=== PATIENT | female | born 1985 | race Caucasian/White ===

== ENCOUNTER 2016-09-11 19:09 | Emergency (ER) | payer BC ==
--- NOTE | 2016-09-11 20:22 | DIAGNOSTIC IMAGING REPORT ---
PROCEDURE: CT HEAD WITHOUT CONTRAST INDICATION: Occipital headache x 5 days, initial encounter TECHNIQUE: Noncontrast axial images with sagittal and coronal reformations. COMPARISON: None. FINDINGS: Sulci, ventricular system, and brain parenchyma are normal. No evidence of acute intracranial process. Visualized mastoids and sinuses are clear. IMPRESSION: 1. Negative non-enhanced head CT. 2. Findings discussed with Juan Ramon Scott at 08:21 p.m., [facility] Time
--- NOTE | 2016-09-11 21:07 | ED ORDER SUMMARY ---
..... Patient: LEXY LANG OrderSheet [facility] VisitID: [id number] [address] [place] [address] 30y, F Registration Date/Time: 09/11/2016 ORDER SHEET Weight: 89.8 kg (stated) Allergies: Sulfa Antibiotics, Penicillins GENERAL ORDERS: CBC w Diff Urgent (19:40 09/11/2016 EKoroleva P.A.-C) (Ack 19:52 LMuller) (21:32 LMuller) BMP Urgent (19:40 09/11/2016 EKoroleva P.A.-C) (Ack 19:52 LMuller) (21:32 LMuller) CT Head wo Cont Urgent (20:09/11/2016 EKoroleva P.A.-C) (Ack 20:10 LMuller) (20:23 MCampbell) MEDICATION ORDERS: Phenergan IV 12.5 mg (HIGH ALERT MEDICATION, NOW) (:40 09/11/2016 EKoroleva P.A.-C) (Ack 19:46 HSoule) (20:40 HSoule) Hydrocodone-APAP PO 5/325 mg (NOW, HIGH ALERT MEDICATION) (:40 09/11/2016 EKoroleva P.A.-C) (Ack 21:41 HSoule) (21:45 HSoule) IV FLUIDS: IV NS : initial bolus 1000 mL (1000 mL/hr), then 1000 mL/hr for X1 (NOW); Ezequiel (19:40 09/11/2016 EKoroleva P.A.-C) (Ack 19:46 HSoule) (20:37 HSoule) Toradol IV 30 mg (NOW) (:40 09/11/2016 EKoroleva P.A.-C) (Ack 19:46 HSoule) (20:38 HSoule) Benadryl IV 25 mg (NOW) (:40 09/11/2016 EKoroleva P.A.-C) (Ack 19:46 HSoule) (20:38 HSoule) ORDER SHEET NOTES: [Electronically signed by Sharyn ScottACheryl-Ying (21:14 09/11/2016)] [Electronically signed by Adebayo Hernandez R.N. (22:01 09/11/2016)] [Electronically locked/signed by Adebayo Hernandez R.N. (22:01 09/11/2016)]
--- NOTE | 2016-09-11 21:07 | ED CLINICAL REPORT ---
Clinical Report - Physicians/Mid Levels Formerly [facility] [address] [address] 09/11/2016 19:11 [id number] Time Seen: 19:47 Sep 11 2016. Arrived- By private vehicle. Historian- patient. 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 No emesis. AT times has vision changes, wears corrective lenses, however does not have any now. Reports pain is constant, posterior nature, similar to area where she has had pain in the past, with spells of throbbing pain. Reports she has attempted to take Tylenol and Motrin with no relief. No trauma. No emesis. Some right-sided neck pain. No sick contacts.). REVIEW OF SYSTEMS No fever, muscle aches, sinus pressure, ear pain or abdominal pain. No diarrhea, skin rash or back pain. All systems otherwise negative, except as recorded above. 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 Additional Surgeries: Cyst removal from hand . Hysterectomy. Knee Surgery. Medications: INHALER . Calcium + D Oral. Aspirin Oral. Allergies: Penicillins. Sulfa Antibiotics. SOCIAL HISTORY Never smoker. Alcohol use. No drug use. ADDITIONAL NOTES The nursing notes have been reviewed. PHYSICAL EXAM Vital Signs: 09/11/2016 19:19 BP: 133/95. HR: 70. RR: 20. O2 saturation: 100%. Temp: 97.9 F. Pain level now: 5/10. Appearance: Alert. Eyes: Pupils equal, round and reactive to light. Eyes normal inspection. ENT: No nasal discharge. Neck: Normal inspection. CVS: Normal heart rate and rhythm. Heart sounds normal. Skin: Normal skin color. Neuro: Oriented X 3. Alert. Mood/affect normal. Cranial nerves normal (as tested). No cerebellar findings. LABS, X-RAYS, AND EKG CT Head: (IMPRESSION: 1. Negative non-enhanced head CT. 2. Findings discussed with Juan Ramon Scott at 08:21 p.m., [place] [facility] Time Electronically Final signed by:Matheus Bella MD 09/11/2016 8:22:30 PM). Laboratory Tests: CBC w Diff: (DONAL: 09/11/2016 20:05) ( MsgRcvd 09/11/2016 20:35) Final results Test Result Flag Units (Reference) WHITE BLOOD COUNT 9.4 K/uL (4.5-11.5) RED BLOOD COUNT 4.48 M/uL (4.00-5.20) HEMOGLOBIN 13.7 gm/dL (12.0-16.0) HEMATOCRIT 40.1 % (36.0-46.0) MEAN CELL VOLUME 89 fL (80-100) MEAN CORPUSCULAR HGB 31 pg (26-34) MEAN CORPUSCULAR HGB CONC 34 g/dL (31-37) RED CELL DISTRIBUTION WIDTH 12.2 % (11.6-14.8) PLATELET COUNT 278 K/uL (150-400) NEUTROPHIL % 54.4 % (50-75) LYMPH % 36.5 % (25-40) MONO % 4.8 % (3-14) EOSINOPHIL % 3.2 % (0-4) BASOPHIL % 1.1 % (0-2) BMP: (DONAL: 09/11/2016 20:05) ( MsgRcvd 09/11/2016 20:30) Final results Test Result Flag Units (Reference) GLUCOSE 103 mg/dL (70-110) BUN 15 mg/dL (7-18) CREATININE 0.7 mg/dL (0.6-1.3) Estimated GFR >60 mL/min Estimated GFR- >60 mL/min Note: Persistent reduction over 3 months in eGFR<60 mL/min/1.73 m2 defines CKD. Patients with eGFR values>=60 mL/min/1.73 m2 may also have CKD if evidence ofpersistent proteinuria. Additional information may be foundat www.kidney.org. SODIUM 145 mmol/L (136-145) POTASSIUM 4.0 mmol/L (3.5-5.1) CHLORIDE 108 H mmol/L (98-107) CARBON DIOXIDE 27 mmol/L (21-32) CALCIUM 9.0 mg/dL (8.5-10.1) . PROGRESS AND PROCEDURES Course of Care: Patient in the ER with headache, which is improving, no meningeal signs, headache and cough for 3 days, history of recurring headaches over the last 6 months, episodic in nature, always in the same side, most consistent with migraine-like headaches. Negative CT head, other causes such as sever for hemorrhage, meningitis in light of the largely negative exam with no meningeal signs, with afebrile nature, with no leukocytosis is low on differential. Patient understands plan. Off work tomorrow, and otherwise to follow up with primary care provider. Patient is stable. Symptoms better. Patient/family counseled. Differential Diagnosis: I considered migraine, cluster headache, ischemic stroke, subarachnoid hemorrhage, intracranial bleed, vascular malformation, vascular dissection, malignant hypertension, cerebral venous thrombosis, bacterial meningitis, viral meningitis, encephalitis, brain abscess, sinusitis, dental etiology, influenza, carbon monoxide exposure, trigeminal neuralgia, paratrigeminal neuralgia or Raeder's syndrome, muscle tension and acute angle-closure glaucoma as a possible cause of headache in this patient. This is a partial list of diagnoses considered. Disposition: Discharged. CLINICAL IMPRESSION Episodic, poorly controlled headache. INSTRUCTIONS Do not work tomorrow. Warnings: Further evaluation is necessary. Prescription Medications: Zofran (orally disintegrating tablets) 4 mg: take 1 orally every 6 hours for 3 days as needed for nausea. Dispense ten (10). No refill. Substitution is permissible. Fioricet with Codeine: Take 1-2 orally every 4 hours as needed for headache. Dispense twenty (20). No refills. Substitution is permissible. Follow-up: Follow up with your doctor Thursday in three days. (Electronically signed by Sharyn Scott P.A.-C 09/11/2016 21:14)
--- NOTE | 2016-09-11 21:07 | ED CLINICAL REPORT ---
Clinical Report - Physicians/Mid Levels [facility] [address] [place] [address] 09/11/2016 19:11 Patient: LEXY LANG [facility] [id number] Time Seen: 19:47 Sep 11 2016. Arrived- By private vehicle. Historian- patient. 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 No emesis. AT times has vision changes, wears corrective lenses, however does not have any now. Reports pain is constant, posterior nature, similar to area where she has had pain in the past, with spells of throbbing pain. Reports she has attempted to take Tylenol and Motrin with no relief. No trauma. No emesis. Some right-sided neck pain. No sick contacts.). REVIEW OF SYSTEMS No fever, muscle aches, sinus pressure, ear pain or abdominal pain. No diarrhea, skin rash or back pain. All systems otherwise negative, except as recorded above. 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 Additional Surgeries: Cyst removal from hand . Hysterectomy. Knee Surgery. Medications: INHALER . Calcium + D Oral. Aspirin Oral. Allergies: Penicillins. Sulfa Antibiotics. SOCIAL HISTORY Never smoker. Alcohol use. No drug use. ADDITIONAL NOTES The nursing notes have been reviewed. PHYSICAL EXAM Vital Signs: 09/11/2016 19:19 BP: 133/95. HR: 70. RR: 20. O2 saturation: 100%. Temp: 97.9 F. Pain level now: 5/10. Appearance: Alert. Eyes: Pupils equal, round and reactive to light. Eyes normal inspection. ENT: No nasal discharge. Neck: Normal inspection. CVS: Normal heart rate and rhythm. Heart sounds normal. Skin: Normal skin color. Neuro: Oriented X 3. Alert. Mood/affect normal. Cranial nerves normal (as tested). No cerebellar findings. LABS, X-RAYS, AND EKG CT Head: (IMPRESSION: 1. Negative non-enhanced head CT. 2. Findings discussed with Juan Ramon Scott at 08:21 p.m., [place] Standard Time Electronically Final signed by:Matheus Bella MD 09/11/2016 8:22:30 PM). Laboratory Tests: CBC w Diff: (DONAL: 09/11/2016 20:05) ( MsgRcvd 09/11/2016 20:35) Final results Test Result Flag Units (Reference) WHITE BLOOD COUNT 9.4 K/uL (4.5-11.5) RED BLOOD COUNT 4.48 M/uL (4.00-5.20) HEMOGLOBIN 13.7 gm/dL (12.0-16.0) HEMATOCRIT 40.1 % (36.0-46.0) MEAN CELL VOLUME 89 fL (80-100) MEAN CORPUSCULAR HGB 31 pg (26-34) MEAN CORPUSCULAR HGB CONC 34 g/dL (31-37) RED CELL DISTRIBUTION WIDTH 12.2 % (11.6-14.8) PLATELET COUNT 278 K/uL (150-400) NEUTROPHIL % 54.4 % (50-75) LYMPH % 36.5 % (25-40) MONO % 4.8 % (3-14) EOSINOPHIL % 3.2 % (0-4) BASOPHIL % 1.1 % (0-2) BMP: (DONAL: 09/11/2016 20:05) ( MsgRcvd 09/11/2016 20:30) Final results Test Result Flag Units (Reference) GLUCOSE 103 mg/dL (70-110) BUN 15 mg/dL (7-18) CREATININE 0.7 mg/dL (0.6-1.3) Estimated GFR >60 mL/min Estimated GFR- >60 mL/min Note: Persistent reduction over 3 months in eGFR<60 mL/min/1.73 m2 defines CKD. Patients with eGFR values>=60 mL/min/1.73 m2 may also have CKD if evidence ofpersistent proteinuria. Additional information may be foundat www.kidney.org. SODIUM 145 mmol/L (136-145) POTASSIUM 4.0 mmol/L (3.5-5.1) CHLORIDE 108 H mmol/L (98-107) CARBON DIOXIDE 27 mmol/L (21-32) CALCIUM 9.0 mg/dL (8.5-10.1) . PROGRESS AND PROCEDURES Course of Care: Patient in the ER with headache, which is improving, no meningeal signs, headache and cough for 3 days, history of recurring headaches over the last 6 months, episodic in nature, always in the same side, most consistent with migraine-like headaches. Negative CT head, other causes such as sever for hemorrhage, meningitis in light of the largely negative exam with no meningeal signs, with afebrile nature, with no leukocytosis is low on differential. Patient understands plan. Off work tomorrow, and otherwise to follow up with primary care provider. Patient is stable. Symptoms better. Patient/family counseled. Differential Diagnosis: I considered migraine, cluster headache, ischemic stroke, subarachnoid hemorrhage, intracranial bleed, vascular malformation, vascular dissection, malignant hypertension, cerebral venous thrombosis, bacterial meningitis, viral meningitis, encephalitis, brain abscess, sinusitis, dental etiology, influenza, carbon monoxide exposure, trigeminal neuralgia, paratrigeminal neuralgia or Raeder's syndrome, muscle tension and acute angle-closure glaucoma as a possible cause of headache in this patient. This is a partial list of diagnoses considered. Disposition: Discharged. CLINICAL IMPRESSION Episodic, poorly controlled headache. INSTRUCTIONS Do not work tomorrow. Warnings: Further evaluation is necessary. Prescription Medications: Zofran (orally disintegrating tablets) 4 mg: take 1 orally every 6 hours for 3 days as needed for nausea. Dispense ten (10). No refill. Substitution is permissible. Fioricet with Codeine: Take 1-2 orally every 4 hours as needed for headache. Dispense twenty (20). No refills. Substitution is permissible. Follow-up: Follow up with your doctor Thursday in three days. (Electronically signed by Sharyn Scott P.A.-C 09/11/2016 21:14)
--- NOTE | 2016-09-11 21:07 | ED NURSING NOTES ---
Clinical Report - Nurses [place] [address] [place] [address] 09/11/2016 19:11 Patient: LEXY LANG TRIAGE Triage time 19:19 Sep 11 2016. Acuity: LEVEL 3. Chief Complaint: (Shooting head pains). ( FAST exam neg). SEPSIS SCREEN: Sepsis Screen: negative. Negative (no infection suspected/documented). LE COMA SCORE: [place] Coma Scale: 15- eyes open spontaneously (4); best verbal response- oriented x 4 (5); best motor response- obeys commands (6). --19:24 Alysia Tilley 19:19 09/11/16. BP: 133/95. HR: 70. RR: 20. O2 saturation: 100% on room air. Temp: 97.9 F (oral). Pain level now: 5/10. --19:24 Alysia Tilley. Weight: 89.8 kg stated. Height/Length: 66 inches Per Patient. BMI: 32. --19:21 Alysia Tilley. Medications Aspirin Oral. --19:22 Alysia Tilley Calcium + D Oral. --19:22 Alysia Tilley INHALER . --19:22 Alysia Tilley. Allergies Sulfa Antibiotics. --19:23 Alysia Tilley Penicillins. --19:23 Alysia Tilley. Medication/allergy information source: the patient. --19:24 Alysia Tilley. History Arrived by private vehicle. Historian: patient. Accompanied by family. Primary physician (ervin). Onset. (3 days ago). ( Patient reports "shooting, sharp bursts of pain" on her right frontal area of her head. She states this pain is accompanied by a dull headache. She reports that she has been having trouble articulating her speech and some issues with vision such as "black spots" in her visual field.). PAST MEDICAL HX: Immunizations: up-to-date. The patient has had a hysterectomy. Has had a hysterectomy. SOCIAL HX: Never smoker. Occasional alcohol use. No drug use. No infectious disease exposure. ABUSE ASSESSMENT: No report of abuse. FALL RISK ASSESSMENT: Fall risk assessment completed. No fall risk identified. NUTRITIONAL RISK ASSESSMENT: The nutritional risk assessment revealed no deficiencies. FUNCTIONAL ASSESSMENT: Functional assessment: no impairments noted. LEARNING NEEDS ASSESSMENT: The learning needs assessment revealed no barriers. SKIN INTEGRITY ASSESSMENT: Skin integrity risk assessment completed. No skin integrity risk identified. --19:24 Alysia Tilley. PROBLEMS: Peter Syndrome . --19:33 Alysia Tilley. ADDITIONAL SURGERIES: Cyst removal from hand . Hysterectomy. Knee Surgery. --19:23 Alysia Tilley. Interventions ID band on patient. To treatment room. --19:24 Alysia Tilley. PHYSICAL ASSESSMENT :09/11/16. Ambulatory to room. Patient gowned. GENERAL / NEURO / PSYCH: Alert. Oriented X 4. Appears in no acute distress. HEENT: No facial asymmetry noted. Mucous membranes are pink. RESPIRATORY: Respirations not labored. CVS: Normal sinus rhythm noted. SKIN: Skin is warm and dry. --19:24 Alysia Tilley. NURSING PROGRESS NOTES Pulse oximeter and NIBP monitor placed on patient; monitor alarms on. Patient gowned. Reassurance given to the patient. Two patient identifiers checked. Call light placed in reach. Side rails up x 1. Bed placed in lowest position. Brakes of bed on. Patient ready for evaluation- chart flagged and ED physician notified. 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 --19:33 Alysia Tilley 20:09 09/11/2016 One (1) unsuccessful IV access attempt including the left antecubital space. Applied bandaid (Blood drawn and sent to lab. Start attempted by student Ava Jose). --20:09 Alysia Tilley Patient transported to CT by stretcher with tech. (20:10 Sep 11 2016). --20:10 Alysia Tilley Patient returned from CT by stretcher with tech. (20:14 Sep 11 2016). --20:14 Alysia Tilley 20:31 09/11/2016 Site #1 started via IV in the right hand with an 22g angiocath, with aseptic technique and good blood return; one attempt. Saline lock flushed with 10 mL saline. --20:36 Alysia Tilley 20:33 09/11/2016 Benadryl (DiphenhydrAMINE HCl) IVP 25 mg given over 1 minute(s) via site #1. Allergies verified, confirmed 5 rights and sedative warning given to the patient. IV patency established. IV site checked: no pain, redness, or swelling. IV flushed thoroughly pre- and post-medication administration. IVP given by RN. --20:38 Alysia Tilley 20:37 09/11/2016 Started bag #1 1000 mL IV Fluids IV NS (Saline); at 1000 mL/hr over 1 hour(s) via site #1 via IV pump. Allergies verified and confirmed 5 rights. IV patency established. IV site checked: no pain, redness, or swelling. IV flushed thoroughly pre- and post-medication administration. --20:37 Alysia Tilley 20:37 09/11/2016 Toradol IVP 30 mg given over 1 minute(s) via site #1. Allergies verified and confirmed 5 rights. IV patency established. IV site checked: no pain, redness, or swelling. IV flushed thoroughly pre- and post-medication administration. IVP given by RN. --20:38 Alysia Tilley 20:40 09/11/2016 PHENERGAN (Promethazine HCl) IVP 12.5 mg given diluted in NS 10mL over 1 minute(s) via site #1. Allergies verified and confirmed 5 rights. IV patency established. IV site checked: no pain, redness, or swelling. IV flushed thoroughly pre- and post-medication administration. IVP given by RN. --20:40 Alysia Tilley 20:40 09/11/16. BP: 105/76. HR: 83. RR: 16. O2 saturation: 100% on room air. Pain level now: 11/17. --20:41 Alysia Tilley 21:31 09/11/2016 IV Fluids IV NS Discontinued: bag #1 completed. Total amount infused: 1000 mL. IV patency established. IV site checked: no pain, redness, or swelling. IV flushed thoroughly. (Patient up for discharge, provider will hold second bag of fluids.). --21:31 Alysia Tilley 21:45 09/11/2016 Hydrocodone-APAP (Hydrocodone-Acetaminophen) PO 5/325 mg Tablets 1 tab given. Allergies verified, confirmed 5 rights and sedative warning given to the patient. --21:45 Alysia Tilley. DISPOSITION / DISCHARGE 21:59 09/11/2016 Site #1 removed upon discharge. Catheter intact. Bandaid applied. --21:59 Adebayo Hernandez R.N. Departure time: 22:00. Condition at departure: improved. No learning barriers present. Discharge instructions provided and reviewed. Reviewed warnings. Reviewed medication(s). Treatments reviewed. Work note given. Patient verbalized understanding. Written instructions provided in Slovenian. 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 She was discharged home and accompanied by spouse. She left the Emergency Department ambulatory and via private vehicle. Spouse driving. --22: Adebayo Hernandez R.N. 21:59 09/11/16. BP: 105/69. HR: 63. RR: 15. O2 saturation: 99%. Pain level now 4/10. --22:01 Adebayo Hernandez R.N. Departure time: 22:01. --22:01 Adebayo Hernandez R.N. Locked/Released at 09/11/2016 22:01 by Adebayo Hernandez R.N.
--- NOTE | 2016-09-11 21:07 | ED ORDER SUMMARY ---
..... Patient: LEXY LANG OrderSheet [facility] VisitID: [id number] [address] [place] [address] 30y, F Registration Date/Time: 09/11/2016 ORDER SHEET Weight: 89.8 kg (stated) Allergies: Sulfa Antibiotics, Penicillins GENERAL ORDERS: CBC w Diff Urgent (19:40 09/11/2016 EKoroleva P.A.-C) (Ack 19:52 LMuller) (21:32 LMuller) BMP Urgent (19:40 09/11/2016 EKoroleva P.A.-C) (Ack 19:52 LMuller) (21:32 LMuller) CT Head wo Cont Urgent (20:09/11/2016 EKoroleva P.A.-C) (Ack 20:10 LMuller) (20:23 MCampbell) MEDICATION ORDERS: Phenergan IV 12.5 mg (HIGH ALERT MEDICATION, NOW) (:40 09/11/2016 EKoroleva P.A.-C) (Ack 19:46 HSoule) (20:40 HSoule) Hydrocodone-APAP PO 5/325 mg (NOW, HIGH ALERT MEDICATION) (:40 09/11/2016 EKoroleva P.A.-C) (Ack 21:41 HSoule) (21:45 HSoule) IV FLUIDS: IV NS : initial bolus 1000 mL (1000 mL/hr), then 1000 mL/hr for X1 (NOW); Ezequiel (19:40 09/11/2016 EKoroleva P.A.-C) (Ack 19:46 HSoule) (20:37 HSoule) Toradol IV 30 mg (NOW) (:40 09/11/2016 EKoroleva P.A.-C) (Ack 19:46 HSoule) (20:38 HSoule) Benadryl IV 25 mg (NOW) (:40 09/11/2016 EKoroleva P.A.-C) (Ack 19:46 HSoule) (20:38 HSoule) ORDER SHEET NOTES: [Electronically signed by Sharyn ScottACheryl-Ying (21:14 09/11/2016)] [Electronically signed by Adebayo Hernandez R.N. (22:01 09/11/2016)] [Electronically locked/signed by Adebayo Hernandez R.N. (22:01 09/11/2016)]
--- NOTE | 2016-09-11 22:02 | ED MAR SUMMARY ---
..... Medication Administration Record [facility] [address] [place] [address] Patient: LEXY LANG Visit ID: [id number] 30y, F Weight: 89.8 kg Height/Length: 66 in BMI: 32 ALLERGIES: Penicillins, Sulfa Antibiotics Given 20:33 09/11/2016 Alysia Tilley, Medication Administered: BENADRYL [IVP] (DIPHENHYDRAMINE HCL), Dose: 25 mg IVP over 1 minute(s), Site: #1 right hand. Medication Ordered: Benadryl IV 25 mg (NOW). Start 20:37 09/11/2016 Alysia Tilley,, Stop 21:31 09/11/2016 Alysia Tilley, Medication Administered: IV NS (SALINE), Dose: IV Fluids over 1 hour(s), Rate: 1000 mL/hr, Dispensed: 1000 mL bag, Site: #1 right hand. Medication Ordered: IV NS : initial bolus 1000 mL (1000 mL/hr), then 1000 mL/hr for X1 (NOW); Ezequiel. Given 20:37 09/11/2016 Alysia Tilley, Medication Administered: TORADOL [IVP], Dose: 30 mg IVP over 1 minute(s), Site: #1 right hand. Medication Ordered: Toradol IV 30 mg (NOW). Given 20:40 09/11/2016 Alysia Tilley, Medication Administered: PHENERGAN [IVP] (PROMETHAZINE HCL), Dose: 12.5 mg IVP over 1 minute(s), In: NS 10 mL, Site: #1 right hand. Medication Ordered: Phenergan IV 12.5 mg (HIGH ALERT MEDICATION, NOW). Given 21:45 09/11/2016 Alysia Tilley, Medication Administered: HYDROCODONE-APAP [PO] (HYDROCODONE-ACETAMINOPHEN), Dose: 1 tab 5/325 mg Tablets PO. Medication Ordered: Hydrocodone-APAP PO 5/325 mg (NOW, HIGH ALERT MEDICATION).
--- NOTE | 2016-09-11 22:02 | ED MED RECONCILIATION SUMMARY ---
Patient: LEXY LANG Medication Reconciliation Report [facility] VisitID: [id number] [address] [place] [address] 30y, F Registration Date/Time: 09/11/2016 Weight: 89.8 kg Height/Length: 66 in. BMI: 32.0 ALLERGIES: Penicillins, Sulfa Antibiotics The patient's Home Medications are listed below: THE FOLLOWING MEDICATIONS NEED TO BE RECONCILED: Aspirin Oral Calcium + D Oral INHALER The source(s) of the original Home Medication information: patient The following Medications were given to the patient in the Emergency Department: IV NS IV Fluids bolus 0, then 1000 mL/hr, administered: 09/11/2016 8:37:00 PM Toradol [IVP] IVP 30 mg, administered: 09/11/2016 8:37:00 PM Benadryl [IVP] IVP 25 mg, administered: 09/11/2016 8:33:00 PM PHENERGAN [IVP] IVP 12.5 mg diluted in NS 10 mL, administered: 09/11/2016 8:40:00 PM Hydrocodone-APAP [PO] PO 1 tab, administered: 09/11/2016 9:45:00 PM The following Medications were prescribed to the patient: Zofran (orally disintegrating tablets) 4 mg: take 1 orally every 6 hours for 3 days as needed for nausea. Dispense ten (10). No refill. Substitution is permissible. -- Sharyn Scott, P.A.-Ying Fioricet with Codeine: Take 1-2 orally every 4 hours as needed for headache. Dispense twenty (20). No refills. Substitution is permissible. -- Sharyn Scott, P.A.-C
--- NOTE | 2016-09-11 22:02 | ED MAR SUMMARY ---
..... Medication Administration Record [facility] [address] [place] [address] Patient: LEXY LANG Visit ID: [id number] 30y, F Weight: 89.8 kg Height/Length: 66 in BMI: 32 ALLERGIES: Penicillins, Sulfa Antibiotics Given 20:33 09/11/2016 Alysia Tilley, Medication Administered: BENADRYL [IVP] (DIPHENHYDRAMINE HCL), Dose: 25 mg IVP over 1 minute(s), Site: #1 right hand. Medication Ordered: Benadryl IV 25 mg (NOW). Start 20:37 09/11/2016 Alysia Tilley,, Stop 21:31 09/11/2016 Alysia Tilley, Medication Administered: IV NS (SALINE), Dose: IV Fluids over 1 hour(s), Rate: 1000 mL/hr, Dispensed: 1000 mL bag, Site: #1 right hand. Medication Ordered: IV NS : initial bolus 1000 mL (1000 mL/hr), then 1000 mL/hr for X1 (NOW); Ezequiel. Given 20:37 09/11/2016 Alysia Tilley, Medication Administered: TORADOL [IVP], Dose: 30 mg IVP over 1 minute(s), Site: #1 right hand. Medication Ordered: Toradol IV 30 mg (NOW). Given 20:40 09/11/2016 Alysia Tilley, Medication Administered: PHENERGAN [IVP] (PROMETHAZINE HCL), Dose: 12.5 mg IVP over 1 minute(s), In: NS 10 mL, Site: #1 right hand. Medication Ordered: Phenergan IV 12.5 mg (HIGH ALERT MEDICATION, NOW). Given 21:45 09/11/2016 Alysia Tilley, Medication Administered: HYDROCODONE-APAP [PO] (HYDROCODONE-ACETAMINOPHEN), Dose: 1 tab 5/325 mg Tablets PO. Medication Ordered: Hydrocodone-APAP PO 5/325 mg (NOW, HIGH ALERT MEDICATION).
--- NOTE | 2016-09-11 22:02 | ED DISCHARGE INSTRUCTIONS ---
Patient: LEXY LANG General Instructions [facility] VisitID: [id number] [place] [address] 30y, F Registration Date/Time: 09/11/2016 Episodic, poorly controlled headache. INSTRUCTIONS Do not work tomorrow. Warnings: Further evaluation is necessary. Prescription Medications: Zofran (orally disintegrating tablets) 4 mg: take 1 orally every 6 hours for 3 days as needed for nausea. Dispense ten (10). No refill. Substitution is permissible. Fioricet with Codeine: Take 1-2 orally every 4 hours as needed for headache. Dispense twenty (20). No refills. Substitution is permissible. Follow-up: Follow up with your doctor Thursday in three days. ADDITIONAL INFORMATION Headache [Unspecified] The cause of your headache today is not clear, but it does not appear to be the sign of any serious illness. Under stress, some people tense the muscles of their shoulder, neck and scalp without knowing it. If this condition lasts long enough, a TENSION HEADACHE can occur. A MIGRAINE HEADACHE is caused by changes in blood flow to the brain. A migraine attack may be triggered by emotional stress, hormone changes during the menstrual cycle, oral contraceptives, alcohol use, certain foods containing tyramine, eye strain, weather changes, missing meals, lack of sleep or oversleeping. Other causes of headache include a viral illness with high fever, head injury with concussion, sinus, ear or throat infection, dental pain and TMJ (jaw joint) pain. More serious but less common causes of headache include stroke, brain hemorrhage, brain tumor, meningitis and encephalitis. Home Care: If you were given pain medicine for this headache, do not drive yourself home. Arrange for a ride, instead. When you get home, try to sleep. You should feel much better when you wake up. Apply heat to the back of your neck to relieve neck muscle spasm. Migraine headaches may respond best to an ice pack on the forehead or at the base of the skull. If you are having nausea or vomiting, follow a light diet until your headache is relieved. If you have a migraine type headache, use sunglasses when in the daylight or around bright indoor lighting until symptoms improve. Bright glaring light can worsen this kind of headache. Follow Up with your doctor if the headache is not better within the next 24 hours. If you have frequent headaches you should discuss a treatment plan with your primary care doctor. By being aware of the earliest signs of headache, and starting treatment right away, you may be able to stop the pain yourself. Get Prompt Medical Attention if any of the following occur: Worsening of your head pain or no improvement within 24 hours Repeated vomiting (unable to keep liquids down) Fever of 100.4F (38C) or higher, or as directed by your healthcare provider Stiff neck Extreme drowsiness, confusion or fainting Dizziness, vertigo (dizziness with spinning sensation) Weakness of an arm or leg or one side of the face Difficulty with speech or vision Ondansetron Hydrochloride Oral tablet What is this medicine? ONDANSETRON (on SHAVON se annia) is used to treat nausea and vomiting caused by chemotherapy. It is also used to prevent or treat nausea and vomiting after surgery. How should I use this medicine? Take this medicine by mouth with a glass of water. Follow the directions on your prescription label. Take your doses at regular intervals. Do not take your medicine more often than directed. Talk to your travel writer regarding the use of this medicine in children. Special care may be needed. What side effects may I notice from receiving this medicine? Side effects that you should report to your doctor or health child care nurse as soon as possible: allergic reactions like skin rash, itching or hives, swelling of the face, lips or tongue breathing problems dizziness fast or irregular heartbeat feeling faint or lightheaded, falls fever and chills swelling of the hands or feet tightness in the chest Side effects that usually do not require medical attention (report to your doctor or health child care nurse if they continue or are bothersome): constipation or diarrhea headache What may interact with this medicine? Do not take this medicine with any of the following medications: -apomorphine -cisapride -dofetilide -dronedarone -pimozide -thioridazine -ziprasidone This medicine may also interact with the following medications: -carbamazepine -phenytoin -rifampicin -tramadol -other medicines that prolong the QT interval (cause an abnormal heart rhythm) What if I miss a dose? If you miss a dose, take it as soon as you can. If it is almost time for your next dose, take only that dose. Do not take double or extra doses. Where should I keep my medicine? Keep out of the reach of children. Store between 2 and 30 degrees C (36 and 86 degrees F). Throw away any unused medicine after the expiration date. What should I tell my health care provider before I take this medicine? They need to know if you have any of these conditions: heart disease history of irregular heartbeat liver disease low levels of magnesium or potassium in the blood an unusual or allergic reaction to ondansetron, granisetron, other medicines, foods, dyes, or preservatives or trying to get breast-feeding What should I watch for while using this medicine? Check with your doctor or health child care nurse right away if you have any sign of an allergic reaction. You have been given the following additional information: Headache, Unspecified Ondansetron Hydrochloride Oral tablet Do not work tomorrow. (Electronically signed by Sharyn Scott P.A.-C 09/11/2016 21:14)
--- NOTE | 2016-09-11 22:02 | ED MED RECONCILIATION SUMMARY ---
Patient: LEXY LANG Medication Reconciliation Report [facility] VisitID: [id number] [address] [place] [address] 30y, F Registration Date/Time: 09/11/2016 Weight: 89.8 kg Height/Length: 66 in. BMI: 32.0 ALLERGIES: Penicillins, Sulfa Antibiotics The patient's Home Medications are listed below: THE FOLLOWING MEDICATIONS NEED TO BE RECONCILED: Aspirin Oral Calcium + D Oral INHALER The source(s) of the original Home Medication information: patient The following Medications were given to the patient in the Emergency Department: IV NS IV Fluids bolus 0, then 1000 mL/hr, administered: 09/11/2016 8:37:00 PM Toradol [IVP] IVP 30 mg, administered: 09/11/2016 8:37:00 PM Benadryl [IVP] IVP 25 mg, administered: 09/11/2016 8:33:00 PM PHENERGAN [IVP] IVP 12.5 mg diluted in NS 10 mL, administered: 09/11/2016 8:40:00 PM Hydrocodone-APAP [PO] PO 1 tab, administered: 09/11/2016 9:45:00 PM The following Medications were prescribed to the patient: Zofran (orally disintegrating tablets) 4 mg: take 1 orally every 6 hours for 3 days as needed for nausea. Dispense ten (10). No refill. Substitution is permissible. -- Sharyn Scott, P.A.-Ying Fioricet with Codeine: Take 1-2 orally every 4 hours as needed for headache. Dispense twenty (20). No refills. Substitution is permissible. -- Sharyn Scott, P.A.-C
--- NOTE | 2016-09-11 22:02 | ED DISCHARGE INSTRUCTIONS ---
Patient: LEXY LANG General Instructions [facility] VisitID: [id number] [place] [address] 30y, F Registration Date/Time: 09/11/2016 Episodic, poorly controlled headache. INSTRUCTIONS Do not work tomorrow. Warnings: Further evaluation is necessary. Prescription Medications: Zofran (orally disintegrating tablets) 4 mg: take 1 orally every 6 hours for 3 days as needed for nausea. Dispense ten (10). No refill. Substitution is permissible. Fioricet with Codeine: Take 1-2 orally every 4 hours as needed for headache. Dispense twenty (20). No refills. Substitution is permissible. Follow-up: Follow up with your doctor Thursday in three days. ADDITIONAL INFORMATION Headache [Unspecified] The cause of your headache today is not clear, but it does not appear to be the sign of any serious illness. Under stress, some people tense the muscles of their shoulder, neck and scalp without knowing it. If this condition lasts long enough, a TENSION HEADACHE can occur. A MIGRAINE HEADACHE is caused by changes in blood flow to the brain. A migraine attack may be triggered by emotional stress, hormone changes during the menstrual cycle, oral contraceptives, alcohol use, certain foods containing tyramine, eye strain, weather changes, missing meals, lack of sleep or oversleeping. Other causes of headache include a viral illness with high fever, head injury with concussion, sinus, ear or throat infection, dental pain and TMJ (jaw joint) pain. More serious but less common causes of headache include stroke, brain hemorrhage, brain tumor, meningitis and encephalitis. Home Care: If you were given pain medicine for this headache, do not drive yourself home. Arrange for a ride, instead. When you get home, try to sleep. You should feel much better when you wake up. Apply heat to the back of your neck to relieve neck muscle spasm. Migraine headaches may respond best to an ice pack on the forehead or at the base of the skull. If you are having nausea or vomiting, follow a light diet until your headache is relieved. If you have a migraine type headache, use sunglasses when in the daylight or around bright indoor lighting until symptoms improve. Bright glaring light can worsen this kind of headache. Follow Up with your doctor if the headache is not better within the next 24 hours. If you have frequent headaches you should discuss a treatment plan with your primary care doctor. By being aware of the earliest signs of headache, and starting treatment right away, you may be able to stop the pain yourself. Get Prompt Medical Attention if any of the following occur: Worsening of your head pain or no improvement within 24 hours Repeated vomiting (unable to keep liquids down) Fever of 100.4F (38C) or higher, or as directed by your healthcare provider Stiff neck Extreme drowsiness, confusion or fainting Dizziness, vertigo (dizziness with spinning sensation) Weakness of an arm or leg or one side of the face Difficulty with speech or vision Ondansetron Hydrochloride Oral tablet What is this medicine? ONDANSETRON (on SHAVON se annia) is used to treat nausea and vomiting caused by chemotherapy. It is also used to prevent or treat nausea and vomiting after surgery. How should I use this medicine? Take this medicine by mouth with a glass of water. Follow the directions on your prescription label. Take your doses at regular intervals. Do not take your medicine more often than directed. Talk to your stick roller regarding the use of this medicine in children. Special care may be needed. What side effects may I notice from receiving this medicine? Side effects that you should report to your doctor or health manager care as soon as possible: allergic reactions like skin rash, itching or hives, swelling of the face, lips or tongue breathing problems dizziness fast or irregular heartbeat feeling faint or lightheaded, falls fever and chills swelling of the hands or feet tightness in the chest Side effects that usually do not require medical attention (report to your doctor or health manager care if they continue or are bothersome): constipation or diarrhea headache What may interact with this medicine? Do not take this medicine with any of the following medications: -apomorphine -cisapride -dofetilide -dronedarone -pimozide -thioridazine -ziprasidone This medicine may also interact with the following medications: -carbamazepine -phenytoin -rifampicin -tramadol -other medicines that prolong the QT interval (cause an abnormal heart rhythm) What if I miss a dose? If you miss a dose, take it as soon as you can. If it is almost time for your next dose, take only that dose. Do not take double or extra doses. Where should I keep my medicine? Keep out of the reach of children. Store between 2 and 30 degrees C (36 and 86 degrees F). Throw away any unused medicine after the expiration date. What should I tell my health care provider before I take this medicine? They need to know if you have any of these conditions: heart disease history of irregular heartbeat liver disease low levels of magnesium or potassium in the blood an unusual or allergic reaction to ondansetron, granisetron, other medicines, foods, dyes, or preservatives or trying to get breast-feeding What should I watch for while using this medicine? Check with your doctor or health manager care right away if you have any sign of an allergic reaction. You have been given the following additional information: Headache, Unspecified Ondansetron Hydrochloride Oral tablet Do not work tomorrow. (Electronically signed by Sharyn Scott P.A.-C 09/11/2016 21:14)
== END 2016-09-11 21:55 | disposition home or self-care (01) ==
LOC: ED SRH 19:09
DX: G44.89 Other headache syndrome (principal); Z88.0 Allergy status to penicillin; Z88.2 Allergy status to sulfonamides
CPT/HCPCS: 90047; 95059

== ENCOUNTER 2017-01-14 19:57 | Emergency (ER) | payer BC ==
--- NOTE | 2017-01-14 21:07 | ED ORDER SUMMARY ---
..... Patient: LEXY LANG OrderSheet [facility] VisitID: [id number] [address] [place] [address] 31y, F Registration Date/Time: 01/14/2017 ORDER SHEET Weight: 83.9 kg (stated) Allergies: Penicillins, Sulfa Antibiotics, Shellfish-derived Products, Cats GENERAL ORDERS: MEDICATION ORDERS: Prednisone PO 60 mg (NOW) (20:30 01/14/2017 Mimi Dey) (20:42 SRoberts R.N.) HydrOXYzine PO 50 mg (NOW) (20:30 01/14/2017 Mimi Dey) (20:42 Arie R.N.) Claritin PO 10 mg (NOW) (20:30 01/14/2017 Mimi Dey) (20:42 Arie R.N.) IV FLUIDS: ORDER SHEET NOTES: [Electronically signed by Concepcion Poon R.N. (21:19 01/14/2017)] [Electronically signed by Tano Malcolm Dr. (07:40 01/17/2017)] [Electronically locked/signed by Concepcion Poon R.N. (21:19 01/14/2017)]
--- NOTE | 2017-01-14 21:07 | ED ORDER SUMMARY ---
..... Patient: LEXY LANG OrderSheet [facility] VisitID: [id number] [address] [place] [address] 31y, F Registration Date/Time: 01/14/2017 ORDER SHEET Weight: 83.9 kg (stated) Allergies: Penicillins, Sulfa Antibiotics, Shellfish-derived Products, Cats GENERAL ORDERS: MEDICATION ORDERS: Prednisone PO 60 mg (NOW) (20:30 01/14/2017 Mimi Dey) (20:42 SRoberts R.N.) HydrOXYzine PO 50 mg (NOW) (20:30 01/14/2017 Mimi Dey) (20:42 Arie R.N.) Claritin PO 10 mg (NOW) (20:30 01/14/2017 Mimi Dey) (20:42 Arie R.N.) IV FLUIDS: ORDER SHEET NOTES: [Electronically signed by Concepcion Poon R.N. (21:19 01/14/2017)] [Electronically signed by Tano Malcolm Dr. (07:40 01/17/2017)] [Electronically locked/signed by Concepcion Poon R.N. (21:19 01/14/2017)]
--- NOTE | 2017-01-14 21:07 | ED NURSING NOTES ---
Clinical Report - Nurses [facility] [address] [place] [address] 01/14/2017 19:57 Patient: LEXY LANG TRIAGE Triage time 20:07. Acuity: LEVEL 2. Chief Complaint: POSSIBLE ALLERGIC REACTION and . Pt moving air well, speaking full sentences. Rt eye blood shot. Had had contacks in and removed about 30 min after exposure. Alert. No acute distress. --20:16 Concepcion Poon R.N. 20:10 01/14/17. BP: 118/82 taken on the left arm, while sitting. HR: 106. RR: 20. O2 saturation: 97%. Temp: 97.9 F. Pain level now: 01/17. --20:16 Concepcion Poon R.N. 20:10 01/14/17. BP: 118/82 taken on the left arm, while sitting. HR: 106. RR: 20. O2 saturation: 97%. Temp: 97.9 F. Pain level now: 01/17. --20:16 Concepcion Poon R.N. Weight: 83.9 kg stated. Height/Length: 67 inches Per Patient. BMI: 29. --20:15 Concepcion Poon R.N. Medications Aspirin Oral. Calcium + D Oral. INHALER (used lots of times today ). --20:09 Concepcion Poon R.N. Medication/allergy information source: the patient. --20:16 Concepcion Poon R.N. Allergies Penicillins. Sulfa Antibiotics. --20:09 Concepcion Poon R.N. Shellfish-derived Products. --20:17 Concepcion Poon R.N. Cats. --20:17 Concepcion Poon R.N. History Arrived by private vehicle. Historian: patient. Accompanied by friend. This started just prior to arrival. She has had swelling. No skin rash or itching. 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 (30 min ago). PAST MEDICAL HX: Immunizations: up-to-date. The patient has had a hysterectomy. SOCIAL HX: Never smoker. No alcohol use or drug use. No infectious disease exposure. ABUSE ASSESSMENT: No report of abuse. FALL RISK ASSESSMENT: Fall risk assessment completed. No fall risk identified. NUTRITIONAL RISK ASSESSMENT: The nutritional risk assessment revealed no deficiencies. FUNCTIONAL ASSESSMENT: Functional assessment: no impairments noted. LEARNING NEEDS ASSESSMENT: The learning needs assessment revealed no barriers. SKIN INTEGRITY ASSESSMENT: Skin integrity risk assessment completed. No skin integrity risk identified. --20:16 Concepcion Poon R.N. PROBLEMS: Headache. Peter Syndrome . Contusion. Low back pain. --20:15 Concepcion Poon R.N. ADDITIONAL SURGERIES: Cyst removal from hand . Hysterectomy. Knee Surgery. --20:15 Concepcion Poon R.N. Interventions ID band on patient. To room. --20:16 Concepcion Poon R.N. PHYSICAL ASSESSMENT Ambulatory to room. Patient gowned. GENERAL / NEURO / PSYCH: Alert. Appears in pain and anxious. Oriented X 4. HEENT: ( eye bloodshot, rt is worse.). Mucous membranes are pink. RESPIRATORY: Respirations not labored. ( speaks full sentences, moving good air). CVS: Capillary refill less than 2 seconds. GI / : Abdomen nontender. SKIN: Skin is intact, warm and dry. No skin rash. --20:18 Concepcion Poon R.N. NURSING PROGRESS NOTES Patient gowned. Head of bed elevated. Two patient identifiers checked. Call light placed in reach. Side rails up x 1. Bed placed in lowest position. Brakes of bed on. Patient ready for evaluation. --20:19 Concepcion Poon R.N. 20:32 01/14/2017 Prednisone PO 60 mg given. Allergies verified and confirmed 5 rights. --20:42 Concepcion Poon R.N. 20:32 01/14/2017 Hydroxyzine (HydrOXYzine HCl) PO 50 mg given. Allergies verified, confirmed 5 rights and sedative warning given to the patient. --20:42 Concepcion Poon R.N. 20:32 01/14/2017 Claritin (Loratadine) PO 10 mg given. Allergies verified and confirmed 5 rights. --20:42 Concepcion Poon R.N. DISPOSITION / DISCHARGE 21:18 01/14/17. Condition at departure: improved. No learning barriers present. Reviewed medication(s) side effects, precautions, dosing and course information. Prescription(s) given to the patient. Patient verbalized understanding. Written instructions provided in Romansh. The patient was discharged home and accompanied by data communications analyst. She left the Emergency Department ambulatory and via private vehicle. Veterinary Technician Instructor driving. Medication list reviewed and validated. --21:18 Concepcion Poon R.N. 21:18 01/14/17. BP: 112/70. HR: 76. RR: 16. O2 saturation: 100%. Temp: deferred. Pain level now: 09/19. 20:10 01/14/17. BP: 118/82 taken on the left arm, while sitting. HR: 106. RR: 20. O2 saturation: 97%. Temp: 97.9 F. Pain level now: 01/17. --21:18 Concepcion Poon R.N. Locked/Released at 01/14/2017 21:19 by Concepcion Poon R.N.
--- NOTE | 2017-01-14 21:07 | ED NURSING NOTES ---
Clinical Report - Nurses [facility] [address] [place] [address] 01/14/2017 19:57 Patient: LEXY LANG TRIAGE Triage time 20:07. Acuity: LEVEL 2. Chief Complaint: POSSIBLE ALLERGIC REACTION and . Pt moving air well, speaking full sentences. Rt eye blood shot. Had had contacks in and removed about 30 min after exposure. Alert. No acute distress. --20:16 Concepcion Poon R.N. 20:10 01/14/17. BP: 118/82 taken on the left arm, while sitting. HR: 106. RR: 20. O2 saturation: 97%. Temp: 97.9 F. Pain level now: 01/17. --20:16 Concepcion Poon R.N. 20:10 01/14/17. BP: 118/82 taken on the left arm, while sitting. HR: 106. RR: 20. O2 saturation: 97%. Temp: 97.9 F. Pain level now: 01/17. --20:16 Concepcion Poon R.N. Weight: 83.9 kg stated. Height/Length: 67 inches Per Patient. BMI: 29. --20:15 Concepcion Poon R.N. Medications Aspirin Oral. Calcium + D Oral. INHALER (used lots of times today ). --20:09 Concepcion Poon R.N. Medication/allergy information source: the patient. --20:16 Concepcion Poon R.N. Allergies Penicillins. Sulfa Antibiotics. --20:09 Concepcion Poon R.N. Shellfish-derived Products. --20:17 Concepcion Poon R.N. Cats. --20:17 Concepcion Poon R.N. History Arrived by private vehicle. Historian: patient. Accompanied by friend. This started just prior to arrival. She has had swelling. No skin rash or itching. 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 (30 min ago). PAST MEDICAL HX: Immunizations: up-to-date. The patient has had a hysterectomy. SOCIAL HX: Never smoker. No alcohol use or drug use. No infectious disease exposure. ABUSE ASSESSMENT: No report of abuse. FALL RISK ASSESSMENT: Fall risk assessment completed. No fall risk identified. NUTRITIONAL RISK ASSESSMENT: The nutritional risk assessment revealed no deficiencies. FUNCTIONAL ASSESSMENT: Functional assessment: no impairments noted. LEARNING NEEDS ASSESSMENT: The learning needs assessment revealed no barriers. SKIN INTEGRITY ASSESSMENT: Skin integrity risk assessment completed. No skin integrity risk identified. --20:16 Concepcion Poon R.N. PROBLEMS: Headache. Peter Syndrome . Contusion. Low back pain. --20:15 Concepcion Poon R.N. ADDITIONAL SURGERIES: Cyst removal from hand . Hysterectomy. Knee Surgery. --20:15 Concepcion Poon R.N. Interventions ID band on patient. To room. --20:16 Concepcion Poon R.N. PHYSICAL ASSESSMENT Ambulatory to room. Patient gowned. GENERAL / NEURO / PSYCH: Alert. Appears in pain and anxious. Oriented X 4. HEENT: ( eye bloodshot, rt is worse.). Mucous membranes are pink. RESPIRATORY: Respirations not labored. ( speaks full sentences, moving good air). CVS: Capillary refill less than 2 seconds. GI / : Abdomen nontender. SKIN: Skin is intact, warm and dry. No skin rash. --20:18 Concepcion Poon R.N. NURSING PROGRESS NOTES Patient gowned. Head of bed elevated. Two patient identifiers checked. Call light placed in reach. Side rails up x 1. Bed placed in lowest position. Brakes of bed on. Patient ready for evaluation. --20:19 Concepcion Poon R.N. 20:32 01/14/2017 Prednisone PO 60 mg given. Allergies verified and confirmed 5 rights. --20:42 Concepcion Poon R.N. 20:32 01/14/2017 Hydroxyzine (HydrOXYzine HCl) PO 50 mg given. Allergies verified, confirmed 5 rights and sedative warning given to the patient. --20:42 Concepcion Poon R.N. 20:32 01/14/2017 Claritin (Loratadine) PO 10 mg given. Allergies verified and confirmed 5 rights. --20:42 Concepcion Poon R.N. DISPOSITION / DISCHARGE 21:18 01/14/17. Condition at departure: improved. No learning barriers present. Reviewed medication(s) side effects, precautions, dosing and course information. Prescription(s) given to the patient. Patient verbalized understanding. Written instructions provided in Romansh. The patient was discharged home and accompanied by speech language pathology assistant. She left the Emergency Department ambulatory and via private vehicle. 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 Medication list reviewed and validated. --21:18 Concepcion Poon R.N. 21:18 01/14/17. BP: 112/70. HR: 76. RR: 16. O2 saturation: 100%. Temp: deferred. Pain level now: 09/19. 20:10 01/14/17. BP: 118/82 taken on the left arm, while sitting. HR: 106. RR: 20. O2 saturation: 97%. Temp: 97.9 F. Pain level now: 01/17. --21:18 Concepcion Poon R.N. Locked/Released at 01/14/2017 21:19 by Concepcion Poon R.N.
--- NOTE | 2017-01-14 21:07 | ED CLINICAL REPORT ---
Clinical Report - Physicians/Mid Levels [facility] [address] [place] [address] 01/14/2017 19:57 Patient: LEXY LANG Time Seen: 2014. Arrived- By private vehicle. Historian- patient. HISTORY OF PRESENT ILLNESS Chief Complaint: ALLERGIC REACTION. This started today and is still present and worsening. It was abrupt in onset and has been constant but is not gone now. The patient has had a skin rash, itching and swelling. She has had difficulty breathing (resolved with home albuterol). A cause has been identified (cat). No recent medication, insect bite or food exposure. Was not recently exposed to poison ngozi or poison oak. The patient received treatment prior to arrival (albuterol). Similar symptoms previously: Once. Recent medical care: Not recently seen/assessed. REVIEW OF SYSTEMS All systems otherwise negative, except as recorded above. PAST HISTORY See nurses notes. Medications: Aspirin Oral. Calcium + D Oral. INHALER (used lots of times today ). Allergies: Cats. Penicillins. Shellfish-derived Products. Sulfa Antibiotics. SOCIAL HISTORY Smoker- current status unknown. No alcohol use or drug use. No recent travel. Is a local resident. ADDITIONAL NOTES The nursing notes have been reviewed. PHYSICAL EXAM Vital Signs: 01/14/2017 20:10 BP: 118/82. HR: 106. RR: 20. O2 saturation: 97%. Temp: 97.9 F. Pain level now: 6/10. Blood pressure normal. Oxygen saturation normal. Appearance: Alert. Oriented X3. No acute distress. Head and Neck: Normal external inspection. Eyes: Pupils equal, round and reactive to light. (mild swelling to the eyelids bilaterally with some hyperemia Upper lip is also noted to have some swelling. Appears to be urticarial in the form. No signs of infection. Appears to be localized.). ENT: Ears normal. Nose normal. Pharynx normal. Voice normal. Neck: Neck supple. CVS: Normal heart rate and rhythm. Heart sounds normal. Respiratory: No respiratory distress. Breath sounds normal. Abdomen: Nontender. No organomegaly. Extremities: Normal external inspection. Extremities nontender. PROGRESS AND PROCEDURES Course of Care: the patient is a 31-year-old female with history of allergies to cats was recently exposed to a cat. Patient has no signs of airway compromise at this time. No signs of anaphylaxis. Patient has localized allergic type reaction to the face however. Patient will be treated with allergy medications and monitored. Had discussion with the patient in regards to IV medications versus by mouth versus IM. The patient's workup was Remarkable for significant improvement with her symptoms. Patient was monitored here in the emergency department for any signs of anaphylaxis. Patient with improved swelling and itching. No signs of stridor or airway compromise. Vital signs are in the emergency department are improved. Because of the patient's significant improvement and lack of signs of anaphylaxis, feel the patient is stable outpatient candidate. Patient was monitored until she felt that she was comfortable with returning home. Do not feel patient requires further emergency department workup or evaluation. Do not fill patient is admitted to the hospital. Recommended patient avoid exposure to allergens in the future. Discussed with patient her workup here in the emergency department including diagnosis, home care, follow-up, and return precautions. All questions have been answered. The patient expressed understanding of these instructions and was agreeable to them. CLINICAL IMPRESSION 01/14/2017 20:10 BP: 118/82. HR: 106. RR: 20. O2 saturation: 97%. Temp: 97.9 F. Pain level now: 6/10. Oxygen saturation normal. Localized allergic reaction with skin rash (cat dander). INSTRUCTIONS Warnings: GENERAL WARNINGS: Return or contact your physician immediately if your condition worsens or changes unexpectedly, if not improving as expected, or if other problems arise. Specifically return if pain, vomiting, bleeding, breathing difficulty or fever. Your Current Medications: CONTINUE TAKING THE FOLLOWING MEDICATIONS: Aspirin Oral. Calcium + D Oral. INHALER * : used lots of times today. Prescription Medications: Prednisone every day for 5 days. Dispense sufficient quantity. No refills. (60 mg) Hydroxyzine 50 mg: take 1 orally every 8 hours as needed for itching. Dispense thirty (30). No refill. OTC Medications: Claritin 10 mg (available over the counter): take 1 tablet orally every 12 hours as needed for allergies, congestion or itching. Dispense thirty (30). No refill. Substitution is permissible. Follow-up: Return to the emergency department as needed. Follow up with your doctor in three days. Reason for referral: recheck today's concerns. Summary of care provided to patient via paper. Screening today revealed the patient's blood pressure to be in the normal range. The patient should follow up with a primary care provider for blood pressure management. Understanding of the discharge instructions verbalized by patient. (Electronically signed by Tano Malcolm Dr. 01/17/2017 7:40)
--- NOTE | 2017-01-17 07:40 | ED MAR SUMMARY ---
..... Medication Administration Record [facility] [address] [place] [address] Patient: LEXY LANG Visit ID: [id number] 31y, F Weight: 83.9 kg Height/Length: 67 in BMI: 29 ALLERGIES: Penicillins, Sulfa Antibiotics, Shellfish-derived Products, Cats Given 2001/14/2017 Concepcion Poon R.N. Medication Administered: PREDNISONE [PO], Dose: 60 mg PO. Medication Ordered: Prednisone PO 60 mg (NOW). Given :01/14/2017 Concepcion Poon R.N. Medication Administered: HYDROXYZINE [PO] (HYDROXYZINE HCL), Dose: 50 mg PO. Medication Ordered: HydrOXYzine PO 50 mg (NOW). Given 01/14/2017 Concepcion Poon R.N. Medication Administered: CLARITIN [PO] (LORATADINE), Dose: 10 mg PO. Medication Ordered: Claritin PO 10 mg (NOW).
--- NOTE | 2017-01-17 07:40 | ED DISCHARGE INSTRUCTIONS ---
Patient: LEXY LANG General Instructions [facility] VisitID: [id number] [place] [address] 31y, F Registration Date/Time: 01/14/2017 01/14/2017 20:10 BP: 118/82. HR: 106. RR: 20. O2 saturation: 97%. Temp: 97.9 F. Pain level now: 6/10. Oxygen saturation normal. Localized allergic reaction with skin rash (cat dander). INSTRUCTIONS Warnings: GENERAL WARNINGS: Return or contact your physician immediately if your condition worsens or changes unexpectedly, if not improving as expected, or if other problems arise. Specifically return if pain, vomiting, bleeding, breathing difficulty or fever. Your Current Medications: CONTINUE TAKING THE FOLLOWING MEDICATIONS: Aspirin Oral. Calcium + D Oral. INHALER * : used lots of times today. Prescription Medications: Prednisone every day for 5 days. Dispense sufficient quantity. No refills. (60 mg) Hydroxyzine 50 mg: take 1 orally every 8 hours as needed for itching. Dispense thirty (30). No refill. OTC Medications: Claritin 10 mg (available over the counter): take 1 tablet orally every 12 hours as needed for allergies, congestion or itching. Dispense thirty (30). No refill. Substitution is permissible. Follow-up: Return to the emergency department as needed. Follow up with your doctor in three days. Reason for referral: recheck today's concerns. Summary of care provided to patient via paper. Screening today revealed the patient's blood pressure to be in the normal range. The patient should follow up with a primary care provider for blood pressure management. Understanding of the discharge instructions verbalized by patient. ADDITIONAL INFORMATION Allergic Reaction,Generalized [Other] You are having an allergic reaction. This may cause an itchy rash, dizziness, fainting, trouble breathing or swallowing, and swelling of the face or other parts of the body. This can be caused by exposure to something in your surroundings that you have become sensitive to. This could be due to medicine or food. This could also be due to something you put on your skin or in your hair or something in the air. Often it is not possible to find out exactly what has caused your reaction. The goal of today's treatment is to relieve symptoms. The rash will usually fade over several days, but can sometimes last up to two weeks. Home Care: 1) If you know what you are allergic to, avoid it because future reactions could be worse than this one. 2) Avoid tight clothing and anything that heats up your skin (hot showers/baths, direct sunlight) since heat will make itching worse. 3) An ice pack will relieve local areas of intense itching and redness. Lanacaine cream or Solarcaine spray (or other product containing "benzocaine", available without a prescription) will reduce the itching. 4) Oral Benadryl (diphenhydramine) is an antihistamine available at drug and grocery stores. Unless a prescription antihistamine was given, Benadryl may be used to reduce itching if large areas of the skin are involved. Use lower doses during the daytime and higher doses at bedtime since the drug may make you sleepy. [NOTE: Do not use Benadryl if you have glaucoma or if you are a man with trouble urinating due to an enlarged prostate.] Claritin (loratidine) is an antihistamine that causes less drowsiness and is a good alternative for daytime use. Follow Up Follow Up with your doctor or this facility in two days if your symptoms do not continue to improve. If you had a severe reaction today, or if you have had several mild-moderate allergic reactions in the past, ask your doctor about allergy testing to find out what you are allergic to. If your reaction included dizziness, fainting or trouble breathing or swallowing, ask your doctor about carrying an Allergy Kit (injectable epinephrine) for home use. Get Prompt Medical Attention if any of the following occur: -- Trouble breathing or swallowing -- New or worse swelling in the face, eyelids, lips, mouth, tongue or throat -- Dizziness, weakness or fainting Anaphylaxis Anaphylaxis is the term for a severe allergic reaction. It may begin within minutes, up to a couple hours after exposure to the substance you are allergic to (allergen). Symptoms include nausea, vomiting, diarrhea or stomach cramps, itchy rash (hives), swelling of the eyes, lips, face or tongue, wheezing, difficulty breathing or swallowing, throat tightness, chest pain, dizziness or fainting. This kind of reaction can be life-threatening. Fortunately, your case has responded to treatment. Any remaining symptoms should resolve within 6-24 hours. If you are exposed to the same substance again, you may have the same or more severe reaction. Treatment for anaphylaxis is epinephrine (adrenalin). This is available by prescription as Epi-Pen for self-injection. If the cause of your reaction is known, you should avoid exposure in the future. If the cause is not known, follow up with your doctor for special testing to determine what you are allergic to. Home Care: Rest at home for the next 24 hours. Avoid tobacco and alcohol consumption. These may worsen your symptoms. If you know what caused your reaction today, avoid that in the future since the next reaction may be worse. Let your family members, friends and personal physician know about your allergic reaction. If your allergy was to food, learn how to read food labels so you can check for the offending substance. If a product does not have a label, it is best to avoid it. Consider carrying an identification card or getting a Medic-Alert bracelet to inform medical personnel of your condition in the event you are not able to do so yourself. If an Epi-Pen was prescribed, carry it at all times. It can be life-saving. Learn how to use the device. If you begin to feel the symptoms of another reaction in the future, use the Epi-Pen to inject yourself, and then call 911. Dont wait until symptoms become severe. Oral Benadryl (diphenhydramine) is an antihistamine available at drug and grocery stores. Unless a prescription antihistamine was given, Benadryl may be used to reduce itching if large areas of the skin are involved. Use lower doses during the daytime and higher doses at bedtime since the drug may make you sleepy. [NOTE: Do not use Benadryl if you have glaucoma or if you are a man with trouble urinating due to an enlarged prostate.] Claritin (loratidine) is an antihistamine that causes less drowsiness and is a good alternative for daytime use. If you were prescribed any medicines to prevent symptoms from returning, be sure to take them exactly as directed. Follow Up with your doctor or as advised if you are not improving over the next 1-2 days. If you do not know what caused this reaction, skin and blood tests, or an elimination diet may be helpful. You may locate an insurance customer service specialist in your area by contacting: [employer] [email or web address] [phone] [employer] [email or web address] Get Prompt Medical Attention if any of the following occur: Worsening of your symptoms Trouble breathing or swallowing Swelling in the mouth or face Chest pain Dizziness, weakness or fainting Prednisone Oral tablet What is this medicine? PREDNISONE (PRED ni sone) is a corticosteroid. It is commonly used to treat inflammation of the skin, joints, lungs, and other organs. Common conditions treated include asthma, allergies, and arthritis. It is also used for other conditions, such as blood disorders and diseases of the adrenal glands. How should I use this medicine? Take this medicine by mouth with a glass of water. Follow the directions on the prescription label. Take this medicine with food. If you are taking this medicine once a day, take it in the morning. Do not take more medicine than you are told to take. Do not suddenly stop taking your medicine because you may develop a severe reaction. Your doctor will tell you how much medicine to take. If your doctor wants you to stop the medicine, the dose may be slowly lowered over time to avoid any side effects. Talk to your patrol inspector regarding the use of this medicine in children. Special care may be needed. What side effects may I notice from receiving this medicine? Side effects that you should report to your doctor or health health care assistant as soon as possible: allergic reactions like skin rash, itching or hives, swelling of the face, lips, or tongue changes in emotions or moods changes in vision depressed mood eye pain fever or chills, cough, sore throat, pain or difficulty passing urine increased thirst swelling of ankles, feet Side effects that usually do not require medical attention (report to your doctor or health health care assistant if they continue or are bothersome): confusion, excitement, restlessness headache nausea, vomiting skin problems, acne, thin and shiny skin trouble sleeping weight gain What may interact with this medicine? Do not take this medicine with any of the following medications: metyrapone mifepristone This medicine may also interact with the following medications: aminoglutethimide amphotericin B aspirin and aspirin-like medicines barbiturates certain medicines for diabetes, like glipizide or glyburide cholestyramine cholinesterase inhibitors cyclosporine digoxin diuretics ephedrine female hormones, like estrogens and control pills isoniazid ketoconazole NSAIDS, medicines for pain and inflammation, like ibuprofen or naproxen phenytoin rifampin toxoids vaccines warfarin What if I miss a dose? If you miss a dose, take it as soon as you can. If it is almost time for your next dose, talk to your doctor or health health care assistant. You may need to miss a dose or take an extra dose. Do not take double or extra doses without advice. Where should I keep my medicine? Keep out of the reach of children. Store at room temperature between 15 and 30 degrees C (59 and 86 degrees F). Protect from light. Keep container tightly closed. Throw away any unused medicine after the expiration date. What should I tell my health care provider before I take this medicine? They need to know if you have any of these conditions: Pierpont's syndrome diabetes glaucoma heart disease high blood pressure infection (especially a virus infection such as chickenpox, cold sores, or herpes) kidney disease liver disease mental illness myasthenia gravis osteoporosis seizures stomach or intestine problems thyroid disease an unusual or allergic reaction to lactose, prednisone, other medicines, foods, dyes, or preservatives or trying to get breast-feeding What should I watch for while using this medicine? Visit your doctor or health health care assistant for regular checks on your progress. If you are taking this medicine over a prolonged period, carry an identification card with your name and address, the type and dose of your medicine, and your doctor's name and address. This medicine may increase your risk of getting an infection. Tell your doctor or health health care assistant if you are around anyone with measles or chickenpox, or if you develop sores or blisters that do not heal properly. If you are going to have surgery, tell your doctor or health health care assistant that you have taken this medicine within the last twelve months. Ask your doctor or health health care assistant about your diet. You may need to lower the amount of salt you eat. This medicine may affect blood sugar levels. If you have diabetes, check with your doctor or health health care assistant before you change your diet or the dose of your diabetic medicine. Hydroxyzine Pamoate Oral capsule What is this medicine? HYDROXYZINE (yaima DROX i zeen) is an antihistamine. This medicine is used to treat allergy symptoms. It is also used to treat anxiety and tension. This medicine can be used with other medicines to induce sleep before surgery. How should I use this medicine? Take this medicine by mouth with a full glass of water. Follow the directions on the prescription label. You may take this medicine with food or on an empty stomach. Take your medicine at regular intervals. Do not take your medicine more often than directed. Talk to your patrol inspector regarding the use of this medicine in children. Special care may be needed. While this drug may be prescribed for children as young as 6 years of age for selected conditions, precautions do apply. Patients over 65 years old may have a stronger reaction and need a smaller dose. What side effects may I notice from receiving this medicine? Side effects that you should report to your doctor or health health care assistant as soon as possible: fast or irregular heartbeat difficulty passing urine seizures slurred speech or confusion tremor Side effects that usually do not require medical attention (report to your doctor or health health care assistant if they continue or are bothersome): constipation drowsiness fatigue headache stomach upset What may interact with this medicine? alcohol barbiturate medicines for sleep or seizures medicines for colds, allergies medicines for depression, anxiety, or emotional disturbances medicines for pain medicines for sleep muscle relaxants What if I miss a dose? If you miss a dose, take it as soon as you can. If it is almost time for your next dose, take only that dose. Do not take double or extra doses. Where should I keep my medicine? Keep out of the reach of children. Store at room temperature between 15 and 30 degrees C (59 and 86 degrees F). Keep container tightly closed. Throw away any unused medicine after the expiration date. What should I tell my health care provider before I take this medicine? They need to know if you have any of these conditions: any chronic illness difficulty passing urine glaucoma heart disease kidney disease liver disease lung disease an unusual or allergic reaction to hydroxyzine, cetirizine, other medicines, foods, dyes, or preservatives or trying to get breast-feeding What should I watch for while using this medicine? Tell your doctor or health health care assistant if your symptoms do not improve. You may get drowsy or dizzy. Do not drive, use machinery, or do anything that needs mental alertness until you know how this medicine affects you. Do not stand or sit up quickly, especially if you are an older patient. This reduces the risk of dizzy or fainting spells. Alcohol may interfere with the effect of this medicine. Avoid alcoholic drinks. Your mouth may get dry. Chewing sugarless gum or sucking hard candy, and drinking plenty of water may help. Contact your doctor if the problem does not go away or is severe. This medicine may cause dry eyes and blurred vision. If you wear contact lenses you may feel some discomfort. Lubricating drops may help. See your eye doctor if the problem does not go away or is severe. If you are receiving skin tests for allergies, tell your doctor you are using this medicine. Loratadine Oral tablet, extended release 24 hour What is this medicine? LORATADINE (giorgio AT a francine) is an antihistamine. It helps to relieve sneezing, runny nose, and itchy, watery eyes. This medicine is used to treat the symptoms of allergies. It is also used to treat itchy skin rash and hives. How should I use this medicine? Take this medicine by mouth with a glass of water. Follow the directions on the label. You may take this medicine with food or on an empty stomach. Take your medicine at regular intervals. Do not take your medicine more often than directed. Talk to your patrol inspector regarding the use of this medicine in children. While this medicine may be used in children as young as 6 years for selected conditions, precautions do apply. What side effects may I notice from receiving this medicine? Side effects that you should report to your doctor or health health care assistant as soon as possible: allergic reactions like skin rash, itching or hives, swelling of the face, lips, or tongue breathing problems unusually restless or nervous Side effects that usually do not require medical attention (report to your doctor or health health care assistant if they continue or are bothersome): drowsiness dry or irritated mouth or throat headache What may interact with this medicine? other medicines for colds or allergies What if I miss a dose? If you miss a dose, take it as soon as you can. If it is almost time for your next dose, take only that dose. Do not take double or extra doses. Where should I keep my medicine? Keep out of the reach of children. Store at room temperature between 2 and 30 degrees C (36 and 86 degrees F). Protect from moisture. Throw away any unused medicine after the expiration date. What should I tell my health care provider before I take this medicine? They need to know if you have any of these conditions: asthma kidney disease liver disease an unusual or allergic reaction to loratadine, other antihistamines, other medicines, foods, dyes, or preservatives or trying to get breast-feeding What should I watch for while using this medicine? Tell your doctor or healthcare professional if your symptoms do not start to get better or if they get worse. Your mouth may get dry. Chewing sugarless gum or sucking hard candy, and drinking plenty of water may help. Contact your doctor if the problem does not go away or is severe. You may get drowsy or dizzy. Do not drive, use machinery, or do anything that needs mental alertness until you know how this medicine affects you. Do not stand or sit up quickly, especially if you are an older patient. This reduces the risk of dizzy or fainting spells. You have been given the following additional information: Allergic Reaction, Other (General) Anaphylaxis, General Prednisone Oral tablet Hydroxyzine Pamoate Oral capsule Loratadine Oral tablet, extended release 24 hour (Electronically signed by Tano Malcolm Dr. 01/17/2017 7:40)
--- NOTE | 2017-01-17 07:40 | ED MAR SUMMARY ---
..... Medication Administration Record [facility] [address] [place] [address] Patient: LEXY LANG Visit ID: [id number] 31y, F Weight: 83.9 kg Height/Length: 67 in BMI: 29 ALLERGIES: Penicillins, Sulfa Antibiotics, Shellfish-derived Products, Cats Given 2001/14/2017 Concepcion Poon R.N. Medication Administered: PREDNISONE [PO], Dose: 60 mg PO. Medication Ordered: Prednisone PO 60 mg (NOW). Given :01/14/2017 Concepcion Poon R.N. Medication Administered: HYDROXYZINE [PO] (HYDROXYZINE HCL), Dose: 50 mg PO. Medication Ordered: HydrOXYzine PO 50 mg (NOW). Given 01/14/2017 Concepcion Poon R.N. Medication Administered: CLARITIN [PO] (LORATADINE), Dose: 10 mg PO. Medication Ordered: Claritin PO 10 mg (NOW).
--- NOTE | 2017-01-17 07:40 | ED DISCHARGE INSTRUCTIONS ---
Patient: LEXY LANG General Instructions [facility] VisitID: [id number] [place] [address] 31y, F Registration Date/Time: 01/14/2017 01/14/2017 20:10 BP: 118/82. HR: 106. RR: 20. O2 saturation: 97%. Temp: 97.9 F. Pain level now: 6/10. Oxygen saturation normal. Localized allergic reaction with skin rash (cat dander). INSTRUCTIONS Warnings: GENERAL WARNINGS: Return or contact your physician immediately if your condition worsens or changes unexpectedly, if not improving as expected, or if other problems arise. Specifically return if pain, vomiting, bleeding, breathing difficulty or fever. Your Current Medications: CONTINUE TAKING THE FOLLOWING MEDICATIONS: Aspirin Oral. Calcium + D Oral. INHALER * : used lots of times today. Prescription Medications: Prednisone every day for 5 days. Dispense sufficient quantity. No refills. (60 mg) Hydroxyzine 50 mg: take 1 orally every 8 hours as needed for itching. Dispense thirty (30). No refill. OTC Medications: Claritin 10 mg (available over the counter): take 1 tablet orally every 12 hours as needed for allergies, congestion or itching. Dispense thirty (30). No refill. Substitution is permissible. Follow-up: Return to the emergency department as needed. Follow up with your doctor in three days. Reason for referral: recheck today's concerns. Summary of care provided to patient via paper. Screening today revealed the patient's blood pressure to be in the normal range. The patient should follow up with a primary care provider for blood pressure management. Understanding of the discharge instructions verbalized by patient. ADDITIONAL INFORMATION Allergic Reaction,Generalized [Other] You are having an allergic reaction. This may cause an itchy rash, dizziness, fainting, trouble breathing or swallowing, and swelling of the face or other parts of the body. This can be caused by exposure to something in your surroundings that you have become sensitive to. This could be due to medicine or food. This could also be due to something you put on your skin or in your hair or something in the air. Often it is not possible to find out exactly what has caused your reaction. The goal of today's treatment is to relieve symptoms. The rash will usually fade over several days, but can sometimes last up to two weeks. Home Care: 1) If you know what you are allergic to, avoid it because future reactions could be worse than this one. 2) Avoid tight clothing and anything that heats up your skin (hot showers/baths, direct sunlight) since heat will make itching worse. 3) An ice pack will relieve local areas of intense itching and redness. Lanacaine cream or Solarcaine spray (or other product containing "benzocaine", available without a prescription) will reduce the itching. 4) Oral Benadryl (diphenhydramine) is an antihistamine available at drug and grocery stores. Unless a prescription antihistamine was given, Benadryl may be used to reduce itching if large areas of the skin are involved. Use lower doses during the daytime and higher doses at bedtime since the drug may make you sleepy. [NOTE: Do not use Benadryl if you have glaucoma or if you are a man with trouble urinating due to an enlarged prostate.] Claritin (loratidine) is an antihistamine that causes less drowsiness and is a good alternative for daytime use. Follow Up Follow Up with your doctor or this facility in two days if your symptoms do not continue to improve. If you had a severe reaction today, or if you have had several mild-moderate allergic reactions in the past, ask your doctor about allergy testing to find out what you are allergic to. If your reaction included dizziness, fainting or trouble breathing or swallowing, ask your doctor about carrying an Allergy Kit (injectable epinephrine) for home use. Get Prompt Medical Attention if any of the following occur: -- Trouble breathing or swallowing -- New or worse swelling in the face, eyelids, lips, mouth, tongue or throat -- Dizziness, weakness or fainting Anaphylaxis Anaphylaxis is the term for a severe allergic reaction. It may begin within minutes, up to a couple hours after exposure to the substance you are allergic to (allergen). Symptoms include nausea, vomiting, diarrhea or stomach cramps, itchy rash (hives), swelling of the eyes, lips, face or tongue, wheezing, difficulty breathing or swallowing, throat tightness, chest pain, dizziness or fainting. This kind of reaction can be life-threatening. Fortunately, your case has responded to treatment. Any remaining symptoms should resolve within 6-24 hours. If you are exposed to the same substance again, you may have the same or more severe reaction. Treatment for anaphylaxis is epinephrine (adrenalin). This is available by prescription as Epi-Pen for self-injection. If the cause of your reaction is known, you should avoid exposure in the future. If the cause is not known, follow up with your doctor for special testing to determine what you are allergic to. Home Care: Rest at home for the next 24 hours. Avoid tobacco and alcohol consumption. These may worsen your symptoms. If you know what caused your reaction today, avoid that in the future since the next reaction may be worse. Let your family members, friends and personal physician know about your allergic reaction. If your allergy was to food, learn how to read food labels so you can check for the offending substance. If a product does not have a label, it is best to avoid it. Consider carrying an identification card or getting a Medic-Alert bracelet to inform medical personnel of your condition in the event you are not able to do so yourself. If an Epi-Pen was prescribed, carry it at all times. It can be life-saving. Learn how to use the device. If you begin to feel the symptoms of another reaction in the future, use the Epi-Pen to inject yourself, and then call 911. Dont wait until symptoms become severe. Oral Benadryl (diphenhydramine) is an antihistamine available at drug and grocery stores. Unless a prescription antihistamine was given, Benadryl may be used to reduce itching if large areas of the skin are involved. Use lower doses during the daytime and higher doses at bedtime since the drug may make you sleepy. [NOTE: Do not use Benadryl if you have glaucoma or if you are a man with trouble urinating due to an enlarged prostate.] Claritin (loratidine) is an antihistamine that causes less drowsiness and is a good alternative for daytime use. If you were prescribed any medicines to prevent symptoms from returning, be sure to take them exactly as directed. Follow Up with your doctor or as advised if you are not improving over the next 1-2 days. If you do not know what caused this reaction, skin and blood tests, or an elimination diet may be helpful. You may locate an redevelopment specialist in your area by contacting: [employer] www.[email or web address] [phone] [employer] [email or web address] Get Prompt Medical Attention if any of the following occur: Worsening of your symptoms Trouble breathing or swallowing Swelling in the mouth or face Chest pain Dizziness, weakness or fainting Prednisone Oral tablet What is this medicine? PREDNISONE (PRED ni sone) is a corticosteroid. It is commonly used to treat inflammation of the skin, joints, lungs, and other organs. Common conditions treated include asthma, allergies, and arthritis. It is also used for other conditions, such as blood disorders and diseases of the adrenal glands. How should I use this medicine? Take this medicine by mouth with a glass of water. Follow the directions on the prescription label. Take this medicine with food. If you are taking this medicine once a day, take it in the morning. Do not take more medicine than you are told to take. Do not suddenly stop taking your medicine because you may develop a severe reaction. Your doctor will tell you how much medicine to take. If your doctor wants you to stop the medicine, the dose may be slowly lowered over time to avoid any side effects. Talk to your general supervisor regarding the use of this medicine in children. Special care may be needed. What side effects may I notice from receiving this medicine? Side effects that you should report to your doctor or health home care chaplain as soon as possible: allergic reactions like skin rash, itching or hives, swelling of the face, lips, or tongue changes in emotions or moods changes in vision depressed mood eye pain fever or chills, cough, sore throat, pain or difficulty passing urine increased thirst swelling of ankles, feet Side effects that usually do not require medical attention (report to your doctor or health home care chaplain if they continue or are bothersome): confusion, excitement, restlessness headache nausea, vomiting skin problems, acne, thin and shiny skin trouble sleeping weight gain What may interact with this medicine? Do not take this medicine with any of the following medications: metyrapone mifepristone This medicine may also interact with the following medications: aminoglutethimide amphotericin B aspirin and aspirin-like medicines barbiturates certain medicines for diabetes, like glipizide or glyburide cholestyramine cholinesterase inhibitors cyclosporine digoxin diuretics ephedrine female hormones, like estrogens and control pills isoniazid ketoconazole NSAIDS, medicines for pain and inflammation, like ibuprofen or naproxen phenytoin rifampin toxoids vaccines warfarin What if I miss a dose? If you miss a dose, take it as soon as you can. If it is almost time for your next dose, talk to your doctor or health home care chaplain. You may need to miss a dose or take an extra dose. Do not take double or extra doses without advice. Where should I keep my medicine? Keep out of the reach of children. Store at room temperature between 15 and 30 degrees C (59 and 86 degrees F). Protect from light. Keep container tightly closed. Throw away any unused medicine after the expiration date. What should I tell my health care provider before I take this medicine? They need to know if you have any of these conditions: [place]'s syndrome diabetes glaucoma heart disease high blood pressure infection (especially a virus infection such as chickenpox, cold sores, or herpes) kidney disease liver disease mental illness myasthenia gravis osteoporosis seizures stomach or intestine problems thyroid disease an unusual or allergic reaction to lactose, prednisone, other medicines, foods, dyes, or preservatives or trying to get breast-feeding What should I watch for while using this medicine? Visit your doctor or health home care chaplain for regular checks on your progress. If you are taking this medicine over a prolonged period, carry an identification card with your name and address, the type and dose of your medicine, and your doctor's name and address. This medicine may increase your risk of getting an infection. Tell your doctor or health home care chaplain if you are around anyone with measles or chickenpox, or if you develop sores or blisters that do not heal properly. If you are going to have surgery, tell your doctor or health home care chaplain that you have taken this medicine within the last twelve months. Ask your doctor or health home care chaplain about your diet. You may need to lower the amount of salt you eat. This medicine may affect blood sugar levels. If you have diabetes, check with your doctor or health home care chaplain before you change your diet or the dose of your diabetic medicine. Hydroxyzine Pamoate Oral capsule What is this medicine? HYDROXYZINE (yaima DROX i zeen) is an antihistamine. This medicine is used to treat allergy symptoms. It is also used to treat anxiety and tension. This medicine can be used with other medicines to induce sleep before surgery. How should I use this medicine? Take this medicine by mouth with a full glass of water. Follow the directions on the prescription label. You may take this medicine with food or on an empty stomach. Take your medicine at regular intervals. Do not take your medicine more often than directed. Talk to your general supervisor regarding the use of this medicine in children. Special care may be needed. While this drug may be prescribed for children as young as 6 years of age for selected conditions, precautions do apply. Patients over 65 years old may have a stronger reaction and need a smaller dose. What side effects may I notice from receiving this medicine? Side effects that you should report to your doctor or health home care chaplain as soon as possible: fast or irregular heartbeat difficulty passing urine seizures slurred speech or confusion tremor Side effects that usually do not require medical attention (report to your doctor or health home care chaplain if they continue or are bothersome): constipation drowsiness fatigue headache stomach upset What may interact with this medicine? alcohol barbiturate medicines for sleep or seizures medicines for colds, allergies medicines for depression, anxiety, or emotional disturbances medicines for pain medicines for sleep muscle relaxants What if I miss a dose? If you miss a dose, take it as soon as you can. If it is almost time for your next dose, take only that dose. Do not take double or extra doses. Where should I keep my medicine? Keep out of the reach of children. Store at room temperature between 15 and 30 degrees C (59 and 86 degrees F). Keep container tightly closed. Throw away any unused medicine after the expiration date. What should I tell my health care provider before I take this medicine? They need to know if you have any of these conditions: any chronic illness difficulty passing urine glaucoma heart disease kidney disease liver disease lung disease an unusual or allergic reaction to hydroxyzine, cetirizine, other medicines, foods, dyes, or preservatives or trying to get breast-feeding What should I watch for while using this medicine? Tell your doctor or health home care chaplain if your symptoms do not improve. You may get drowsy or dizzy. Do not drive, use machinery, or do anything that needs mental alertness until you know how this medicine affects you. Do not stand or sit up quickly, especially if you are an older patient. This reduces the risk of dizzy or fainting spells. Alcohol may interfere with the effect of this medicine. Avoid alcoholic drinks. Your mouth may get dry. Chewing sugarless gum or sucking hard candy, and drinking plenty of water may help. Contact your doctor if the problem does not go away or is severe. This medicine may cause dry eyes and blurred vision. If you wear contact lenses you may feel some discomfort. Lubricating drops may help. See your eye doctor if the problem does not go away or is severe. If you are receiving skin tests for allergies, tell your doctor you are using this medicine. Loratadine Oral tablet, extended release 24 hour What is this medicine? LORATADINE (giorgio AT a francine) is an antihistamine. It helps to relieve sneezing, runny nose, and itchy, watery eyes. This medicine is used to treat the symptoms of allergies. It is also used to treat itchy skin rash and hives. How should I use this medicine? Take this medicine by mouth with a glass of water. Follow the directions on the label. You may take this medicine with food or on an empty stomach. Take your medicine at regular intervals. Do not take your medicine more often than directed. Talk to your general supervisor regarding the use of this medicine in children. While this medicine may be used in children as young as 6 years for selected conditions, precautions do apply. What side effects may I notice from receiving this medicine? Side effects that you should report to your doctor or health home care chaplain as soon as possible: allergic reactions like skin rash, itching or hives, swelling of the face, lips, or tongue breathing problems unusually restless or nervous Side effects that usually do not require medical attention (report to your doctor or health home care chaplain if they continue or are bothersome): drowsiness dry or irritated mouth or throat headache What may interact with this medicine? other medicines for colds or allergies What if I miss a dose? If you miss a dose, take it as soon as you can. If it is almost time for your next dose, take only that dose. Do not take double or extra doses. Where should I keep my medicine? Keep out of the reach of children. Store at room temperature between 2 and 30 degrees C (36 and 86 degrees F). Protect from moisture. Throw away any unused medicine after the expiration date. What should I tell my health care provider before I take this medicine? They need to know if you have any of these conditions: asthma kidney disease liver disease an unusual or allergic reaction to loratadine, other antihistamines, other medicines, foods, dyes, or preservatives or trying to get breast-feeding What should I watch for while using this medicine? Tell your doctor or healthcare professional if your symptoms do not start to get better or if they get worse. Your mouth may get dry. Chewing sugarless gum or sucking hard candy, and drinking plenty of water may help. Contact your doctor if the problem does not go away or is severe. You may get drowsy or dizzy. Do not drive, use machinery, or do anything that needs mental alertness until you know how this medicine affects you. Do not stand or sit up quickly, especially if you are an older patient. This reduces the risk of dizzy or fainting spells. You have been given the following additional information: Allergic Reaction, Other (General) Anaphylaxis, General Prednisone Oral tablet Hydroxyzine Pamoate Oral capsule Loratadine Oral tablet, extended release 24 hour (Electronically signed by Tano Malcolm Dr. 01/17/2017 7:40)
--- NOTE | 2017-01-17 07:40 | ED MED RECONCILIATION SUMMARY ---
Patient: LEXY LANG Medication Reconciliation Report [facility] VisitID: [id number] [place] [address] 31y, F Registration Date/Time: 01/14/2017 Weight: 83.9 kg Height/Length: 67 in. BMI: 29.0 ALLERGIES: Cats, Penicillins, Shellfish-derived Products, Sulfa Antibiotics The patient's Home Medications are listed below: CONTINUE TAKING THE FOLLOWING MEDICATIONS: Aspirin Oral Calcium + D Oral INHALER , used lots of times today The source(s) of the original Home Medication information: patient The following Medications were given to the patient in the Emergency Department: Prednisone [PO] PO 60 mg, administered: 01/14/2017 8:32:00 PM Hydroxyzine [PO] PO 50 mg, administered: 01/14/2017 8:32:00 PM Claritin [PO] PO 10 mg, administered: 01/14/2017 8:32:00 PM The following Medications were prescribed to the patient: Claritin 10 mg (available over the counter): take 1 tablet orally every 12 hours as needed for allergies, congestion or itching. Dispense thirty (30). No refill. Substitution is permissible. -- Tano Malcolm Dr. Prednisone every day for 5 days. Dispense sufficient quantity. No refills.(60 mg) -- Tano Malcolm Dr. Hydroxyzine 50 mg: take 1 orally every 8 hours as needed for itching. Dispense thirty (30). No refill. -- Tano Malcolm Dr.
--- NOTE | 2017-01-17 07:40 | ED MED RECONCILIATION SUMMARY ---
Patient: LEXY LANG Medication Reconciliation Report [facility] VisitID: [id number] [place] [address] 31y, F Registration Date/Time: 01/14/2017 Weight: 83.9 kg Height/Length: 67 in. BMI: 29.0 ALLERGIES: Cats, Penicillins, Shellfish-derived Products, Sulfa Antibiotics The patient's Home Medications are listed below: CONTINUE TAKING THE FOLLOWING MEDICATIONS: Aspirin Oral Calcium + D Oral INHALER , used lots of times today The source(s) of the original Home Medication information: patient The following Medications were given to the patient in the Emergency Department: Prednisone [PO] PO 60 mg, administered: 01/14/2017 8:32:00 PM Hydroxyzine [PO] PO 50 mg, administered: 01/14/2017 8:32:00 PM Claritin [PO] PO 10 mg, administered: 01/14/2017 8:32:00 PM The following Medications were prescribed to the patient: Claritin 10 mg (available over the counter): take 1 tablet orally every 12 hours as needed for allergies, congestion or itching. Dispense thirty (30). No refill. Substitution is permissible. -- Tano Malcolm Dr. Prednisone every day for 5 days. Dispense sufficient quantity. No refills.(60 mg) -- Tano Malcolm Dr. Hydroxyzine 50 mg: take 1 orally every 8 hours as needed for itching. Dispense thirty (30). No refill. -- Tano Malcolm Dr.
== END 2017-01-14 21:15 | disposition home or self-care (01) ==
LOC: ED SRH 19:57
DX: L23.81 Allergic contact dermatitis due to animal (cat) (dog) dander (principal); Z79.51 Long term (current) use of inhaled steroids; Z88.2 Allergy status to sulfonamides; Z88.0 Allergy status to penicillin; Z79.82 Long term (current) use of aspirin; Z91.013 Allergy to seafood